=== PATIENT | female | born 1990 | race Hispanic/Latino ===

== ENCOUNTER 2018-03-26 11:15 | Inpatient (IN) | payer MEDICAID, OTHER ==
[~2018-03-26] VITALS: Ht 152.4 cm; Wt 68.9 kg
[2018-03-26] MEDS ORDERED: ONDANSETRON HCL 4 MG/2 ML VIAL ONE (12:01)
[2018-03-26 12:12] LABS: BASOPHILS % (AUTO) 0.5 % (0.0-5.0); EOSINOPHILS % (AUTO) 0.8 % (0.0-8.0); HEMATOCRIT 42.1 % (36-48); LYMPHOCYTES % (AUTO) 15.5 % (21.0-51.0); MEAN CORPUSCULAR HEMOGLOBIN 31.2 pg (27.0-33.0); MEAN CORPUSCULAR HGB CONC 34.7 g/dL (32.0-36.0); MEAN CORPUSCULAR VOLUME 89.9 fL (79-99); MONOCYTES % (AUTO) 5.9 % (3.0-13.0); NEUTROPHILS % (AUTO) 77.3 % (40.0-77.0); PLATELET COUNT (AUTO) 300 K/uL (130-400); RED BLOOD CELL COUNT(AUTO) 4.68 MIL/uL (4.00-5.50); RED CELL DISTRIBUTION WIDTH 12.7 % (11.0-15.5); WHITE BLOOD COUNT (AUTO) 17.7 K/uL (4.8-10.8)
[2018-03-26 12:14] LABS: APPEARANCE,URINE Clear (CLEAR); BILIRUBIN,URINE Negative (NEGATIVE); COLOR,URINE Yellow (YELLOW); GLUCOSE, URINE (UA) Negative (NEGATIVE); KETONES,URINE Negative (NEGATIVE); LEUKOCYTE ESTERASE ,URINE Negative (NEGATIVE); NITRATE,URINE Negative (NEGATIVE); OCCULT BLOOD,URINE Small (NEGATIVE); PROTEIN,URINE Negative (NEGATIVE); UROBILINOGEN,URINE 0.2 mg/dL (0.2-1.0)
[2018-03-26 12:15] LABS: HCG,QUAL RESULT NEGATIVE (NEGATIVE)
[2018-03-26] MEDS ORDERED: MECLIZINE HCL 25 MG TABLET ONE (12:20)
[2018-03-26 12:26] LABS: CREATININE 0.8 mg/dL (0.5-1.5); POTASSIUM 3.9 mmol/L (3.5-5.1)
[2018-03-26 12:31] LABS: ALBUMIN 3.8 g/dL (3.5-5.0); BILIRUBIN,TOTAL 0.3 mg/dL (0.2-1.0)
[2018-03-26 12:59] LABS: BACTERIA,URINE Rare /HPF (None Seen); RBC,URINE 0-1 /HPF (0-1); SQUAMOUS EPITHELIAL CELL,UR Rare /HPF (0-2); WBC,URINE 0-1 /HPF (0-1)
[2018-03-26 14:42] LABS: AMPHET/METH SCREEN,URINE NEGATIVE (NEGATIVE); BARBITURATE SCREEN, URINE NEGATIVE (NEGATIVE); BENZODIAZEPINES SCREEN,URINE NEGATIVE (NEGATIVE); CANNABINOID SCREEN,URINE NEGATIVE (NEGATIVE); COCAINE SCREEN,URINE NEGATIVE (NEGATIVE); OPIATE SCREEN,URINE NEGATIVE (NEGATIVE); PHENCYCLIDINE SCREEN,URINE NEGATIVE (NEGATIVE)
[2018-03-26] MEDS ORDERED: PROMETHAZINE HCL 25 MG/ML 1ML AMPULE IM ONE (14:57)
[2018-03-26] MEDS ORDERED: AMOXICILLIN/POTASSIUM CLAV 875-125 TABLET PO SCH (16:15)
[2018-03-26] MEDS ORDERED: MECLIZINE HCL 25 MG TABLET PO PRN (16:15)
[2018-03-26] MEDS ORDERED: ONDANSETRON HCL 4 MG/2 ML VIAL IV PRN (16:15)
[2018-03-26] MEDS ORDERED: AMOXICILLIN/POTASSIUM CLAV 875-125 TABLET PO ONE (16:31)
[2018-03-26 20:20] VITALS: BP 106/55
[2018-03-26] MEDS: MECLIZINE HCL 25 MG TABLET PO SCH (21:32)
[2018-03-26] MEDS ORDERED: ETON68IM3 SQ (22:46)
[2018-03-26 23:24] VITALS: BP 99/52
[2018-03-27 04:18] VITALS: BP 101/51
[2018-03-27 05:02] LABS: BASOPHILS % (AUTO) 0.7 % (0.0-5.0); EOSINOPHILS % (AUTO) 1.6 % (0.0-8.0); HEMATOCRIT 36.8 % (36-48); LYMPHOCYTES % (AUTO) 30.8 % (21.0-51.0); MEAN CORPUSCULAR HEMOGLOBIN 30.9 pg (27.0-33.0); MEAN CORPUSCULAR VOLUME 90.9 fL (79-99); MONOCYTES % (AUTO) 7.5 % (3.0-13.0); NEUTROPHILS % (AUTO) 59.4 % (40.0-77.0); PLATELET COUNT (AUTO) 253 K/uL (130-400); RED BLOOD CELL COUNT(AUTO) 4.05 MIL/uL (4.00-5.50); RED CELL DISTRIBUTION WIDTH 12.9 % (11.0-15.5); WHITE BLOOD COUNT (AUTO) 9.7 K/uL (4.8-10.8)
[2018-03-27 05:07] LABS: CREATININE 0.8 mg/dL (0.5-1.5); POTASSIUM 3.6 mmol/L (3.5-5.1)
[2018-03-27 07:30] VITALS: BP 94/59
[2018-03-27] MEDS ORDERED: PANTOPRAZOLE SODIUM 40 MG TABLET.DR PO SCH (09:00)
[2018-03-27] MEDS ORDERED: ENOXAPARIN SODIUM 30 MG/0.3 ML SQ SCH (09:00)
[2018-03-27] MEDS: AMOXICILLIN/POTASSIUM CLAV 875-125 TABLET PO SCH ×2 (10:02→17:56)
[2018-03-27] MEDS: MECLIZINE HCL 25 MG TABLET PO SCH ×3 (10:02→17:56)
[2018-03-27 11:00] VITALS: BP 101/51
[2018-03-27] MEDS ORDERED: MECL-111 PO (15:09)
[2018-03-27] MEDS ORDERED: AMOX-429 PO (15:09)
[2018-03-27 16:00] VITALS: BP 101/54
== END 2018-03-27 18:06 | disposition home or self-care (01) | DRG 149 ==
LOC: EDH 11:15 → EDHIP 11:16 → 4BH 20:20
PROVIDERS: ADMIT Internal Medicine; ATTEND Internal Medicine
DX: H81.10 Benign paroxysmal vertigo, unspecified ear (principal); H66.93 Otitis media, unspecified, bilateral; Z23 Encounter for immunization
CPT/HCPCS: 36415; 70450; 70551; 80048; 80053; 80305; 81001; 81025; 85025; J2405; J2550; Q2035

== ENCOUNTER 2018-10-03 14:36 | Emergency (ER) | payer MEDICAID ==
[~2018-10-03 14:36] MED LIST: AMOX-429 PO; ETON68IM3 SQ; MECL-111 PO
[2018-10-03] MEDS ORDERED: MECLIZINE HCL 25 MG TABLET ONE (15:36)
== END 2018-10-03 15:51 | disposition home or self-care (01) ==
LOC: EDH 14:36
DX: H81.399 Other peripheral vertigo, unspecified ear (principal); R11.0 Nausea
CPT/HCPCS: 99282

== ENCOUNTER 2023-10-31 09:09 | Emergency (ER) | payer MEDICAID ==
[~2023-10-31] VITALS: Ht 157.5 cm; Wt 68.0 kg
[~2023-10-31 09:09] MED LIST changes: +ACET-2079 PO; -AMOX-429 PO; -ETON68IM3 SQ; +FERS325 PO; +IBUP-2070 PO; -MECL-111 PO; +PREN1TAB26 PO
[2023-10-31] MEDS: 0.9%NACL 1000ML 1,000 ML IV ONE (09:43)
[2023-10-31] MEDS: ONDANSETRON 4MG INJ IVP ONE (09:43)
[2023-10-31 10:45] LABS: BASOPHILS # (AUTO) 0.05 K/uL (0.00-0.20); BASOPHILS % (AUTO) 0.3 % (0.0-5.0); EOSINOPHILS # (AUTO) 0.03 K/uL (0.00-0.70); EOSINOPHILS % (AUTO) 0.2 % (0.0-8.0); HEMATOCRIT 38.4 % (36-48); IMMATURE GRANULOCYTE ABSOLUTE 0.07 K/uL (0-1); LYMPHOCYTES # (AUTO) 2.2 K/uL (1.0-4.8); LYMPHOCYTES % (AUTO) 14.2 % (21.0-51.0); MEAN CORPUSCULAR HEMOGLOBIN 31.8 pg (27.0-33.0); MEAN CORPUSCULAR HGB CONC 34.6 g/dL (32.0-36.0); MEAN CORPUSCULAR VOLUME 91.9 fL (79-99); MONOCYTES # (AUTO) 0.7 K/uL (0.1-1.0); MONOCYTES % (AUTO) 4.8 % (3.0-13.0); NEUTROPHILS # (AUTO) 12.2 K/uL (1.8-7.7); PLATELET COUNT (AUTO) 289 K/uL (130-400); RED BLOOD CELL COUNT(AUTO) 4.18 MIL/uL (4.00-5.50); RED CELL DISTRIBUTION WIDTH 11.9 % (11.0-15.5); WHITE BLOOD COUNT (AUTO) 15.3 K/uL (4.8-10.8)
[2023-10-31 10:52] LABS: CREATININE 0.7 mg/dL (0.5-1.0); POTASSIUM 4.6 mmol/L (3.5-5.1)
[2023-10-31] MEDS: MECLIZINE HCL 25 MG TABLET PO ONE (11:42)
[2023-10-31 11:43] LABS: INR 0.95 (0.85-1.15); PROTHROMBIN TIME 10.3 SEC (9.6-11.6)
[2023-10-31 11:45] LABS: PARTIAL THROMBOPLASTIN TIME 21.8 SEC (26.3-35.5)
[2023-10-31 13:49] LABS: APPEARANCE,URINE CLOUDY (CLEAR); BILIRUBIN,URINE NEGATIVE (NEGATIVE); COLOR,URINE LIGHT-YELLOW (YELLOW); GLUCOSE, URINE (UA) NEGATIVE (NEGATIVE); KETONES,URINE NEGATIVE (NEGATIVE); LEUKOCYTE ESTERASE ,URINE NEGATIVE Leu/uL (NEGATIVE); NITRATE,URINE 1+ (NEGATIVE); OCCULT BLOOD,URINE NEGATIVE (NEGATIVE); PH,URINE 5.5 (5.0-8.0); PROTEIN,URINE NEGATIVE (NEGATIVE); UROBILINOGEN,URINE 0.2 mg/dL (0.2-1.0)
[2023-10-31 13:56] LABS: ADD UA MICROSCOPIC YES
[2023-10-31 13:59] LABS: BACTERIA,URINE RARE /HPF (None Seen); MUCUS,URINE RARE LPF (None Seen); SQUAMOUS EPITHELIAL CELL,UR MOD /HPF (0-2)
[2023-10-31] MEDS ORDERED: AMOX875T2 PO (14:17)
[2023-10-31] MEDS ORDERED: MECL-302 PO (14:17)
[2023-10-31] MEDS ORDERED: ONDA-243 PO (14:17)
[2023-10-31 14:19] VITALS: BP 111/65; PULSE 66; RESP 18; O2SAT 98
== END 2023-10-31 15:02 | disposition home or self-care (01) ==
LOC: EDH 09:09
DX: R42 Dizziness and giddiness (principal); H92.02 Otalgia, left ear; Z91.014 Allergy to mammalian meats; Z79.899 Other long term (current) drug therapy; Z90.49 Acquired absence of other specified parts of digestive tract; Z98.890 Other specified postprocedural states
CPT/HCPCS: 99284; 96374; 96361; 82550; 84484; 80048; 84702; 85025; 85610; 85730; 87086 ×2; 87186; 81001; 81025; 36415; 93005; J7030; J2405